=== PATIENT | male | born 1955 | race Caucasian/White ===

== ENCOUNTER 2022-03-13 08:26 | Inpatient (IN) | payer MEDICARE ==
[2022-03-10 11:38] LABS: CLARITY,URINE CLEAR (Clear); COLOR,URINE YELLOW (Yellow); GLUCOSE, URINE >=1000 mg/dl (Neg); KETONES,URINE TRACE mg/dl (Neg); LEUKOCYTE ESTERASE ,URINE NEGATIVE (Neg); NITRITES, URINE NEGATIVE (Neg); OCCULT BLOOD,URINE NEGATIVE (Neg); PROTEIN,URINE NEGATIVE (Neg); UROBILINOGEN,URINE 0.2 E.U/dL (0.2-1.0)
[2022-03-10 11:40] LABS: BASOPHILS % (AUTO) 0.5 % (0-1); EOSINOPHILS # (AUTO) 0.2 X10'3 (0-0.9); EOSINOPHILS % (AUTO) 2.6 % (0-6); LYMPHOCYTES # (AUTO) 2.1 X10'3 (1.1-4.8); LYMPHOCYTES % (AUTO) 26.1 % (21-51); MEAN CORPUSCULAR HEMOGLOBIN 29.7 PG (27.0-31.0); MEAN CORPUSCULAR HGB CONC 33.2 g/dL (33.0-36.5); MEAN CORPUSCULAR VOLUME 89.5 FL (78-98); MEAN PLATELET VOLUME 8.3 FL (7.4-10.4); MONOCYTES # (AUTO) 0.6 X10'3 (0-0.9); NEUTROPHILS % (AUTO) 62.8 % (42-75); PRE OP HEMATOCRIT 44.4 % (42.0-52.0); PRE OP HEMOGLOBIN 14.7 g/dL (14.0-17.9); PRE OP PLATELET COUNT 215 X10'3 (140-440); RED BLOOD COUNT 4.96 X10'6 (4.70-6.10); RED CELL DISTRIBUTION WIDTH 13.4 % (11.5-14.5)
[2022-03-10 11:43] LABS: UA COLLECTION TYPE CLN CATCH MIDSTREAM
[2022-03-10 11:44] LABS: BACTERIA,URINE NONE SEEN /HPF (Neg); RBC,URINE 0-2 /HPF (0-2); SQUAMOUS EPITHELIAL CELL,UR FEW /LPF (FEW); WBC,URINE NONE SEEN /HPF (0-4)
[2022-03-10 12:22] LABS: HEMOGLOBIN A1C 7.3 % (4.5-6.2)
[2022-03-10 12:39] LABS: PRE OP PROTIME 10.8 SECONDS (9.0-12.0)
[2022-03-10 12:47] LABS: ALKALINE PHOSPHATASE 54 IU/L (46-116); BLOOD UREA NITROGEN 22 MG/DL (7-18); BUN/CREATININE RATIO 24.2 (5.4-32.0); CALCIUM 9.5 MG/DL (8.5-10.1); CHLORIDE 106 MMOL/L (99-107); CREATININE 0.91 MG/DL (0.60-1.10); PRE OP ALT 39 U/L (30-65); PRE OP ANION GAP 13 (8-16); PRE OP AST 19 U/L (10-37); PRE OP GLUCOSE 135 MG/DL (70-104); PRE OP POTASSIUM 4.1 MMOL/L (3.4-5.1); PRE OP SODIUM 144 MMOL/L (135-145); TOTAL CARBON DIOXIDE 25.1 MMOL/L (24-32); TOTAL PROTEIN 8.2 G/DL (6.4-8.2); eGFR 83 ML/MIN
[~2022-03-13] VITALS: Ht 185.4 cm; Wt 108.3 kg
[2022-03-13] VITALS (18 sets, daily range): BP systolic 103–179; BP diastolic 57–85
[~2022-03-13 08:26] MED LIST: ATOR40TA71 PO; aspirin 325mg tablet PO ONE; cefazolin/dext.iso 2gm/50ml IV ONE; famotidine 20mg tablet PO ONE; ondansetron/PF 4mg/2ml inj IV PRN; ringers solution, lacted 1,000 ML IV SCH; vancomycin/NS 1 GM in NS 250 ML IV ONE
[2022-03-13] MEDS ORDERED: phenylephrine inj 50 MG in normal saline 250ml IV soln 245 ML IV SCH (08:35)
[2022-03-13] MEDS ORDERED: nitroPRUSSIDE (NIPRIDE) (200MCG/ML) 100ML Drip IV SCH (08:35)
[2022-03-13] MEDS ORDERED: protamine sulf. 10mg/ml inj. IV ONE ×2 (09:32→13:06)
[2022-03-13] MEDS ORDERED: ringers solution, lacted 1,000 ML IV SCH (10:35)
[2022-03-13] MEDS ORDERED: ondansetron/PF 4mg/2ml inj IV PRN ×2 (10:35→14:15)
[2022-03-13] MEDS ORDERED: morphine 4 MG/ML inj SYRINge IV PRN (10:35)
[2022-03-13] MEDS ORDERED: labetalol 20mg/4ml (5mg/ml) syringe IV PRN ×2 (10:35→14:15)
[2022-03-13] MEDS ORDERED: fentaNYL/PF 50MCG/1 ML 2ML syringe IV PRN ×2 (10:35)
[2022-03-13] MEDS ORDERED: hydrALAZINE 20mg/ml inj. IV PRN (10:35)
[2022-03-13] MEDS ORDERED: morphine 2 MG/ML inj. syringe IV PRN (10:35)
[2022-03-13] MEDS ORDERED: METF-438 PO (11:46)
[2022-03-13] MEDS ORDERED: heparin 1,000 UNITS/NS 500ml 0 ML ONE (12:14)
[2022-03-13] MEDS ORDERED: LIDOcaine 1% (10mg/ml)w/preservative inj. 20ml MDV ONE (12:14)
[2022-03-13] MEDS ORDERED: iohexol 350 MG/ML 50ML vial IV ONE ×2 (12:14→12:15)
[2022-03-13] MEDS ORDERED: iohexol 350MG/ML 100ml bottle IV ONE ×2 (12:14→12:15)
[2022-03-13] MEDS ORDERED: LIDOCAINE 1% w/preservative (10 MG/ML) inj. 10mL VIAL ONE ×2 (12:15→12:28)
[2022-03-13] MEDS ORDERED: heparin 1,000 UNITS/NS 500ml 1,500 ML ONE (12:15)
[2022-03-13] MEDS ORDERED: fentaNYL/PF 50MCG/1 ML 2ML syringe ONE (12:28)
[2022-03-13] MEDS ORDERED: MIDAZolam 1 MG/ML 5ML VIAL ONE (12:29)
[2022-03-13] MEDS ORDERED: heparin 1,000unit/ml 10ml vial 10 ML ONE ×2 (12:59→13:41)
[2022-03-13] MEDS ORDERED: ALPRAZolam 0.25mg tablet PO PRN (14:15)
[2022-03-13] MEDS ORDERED: pantoprazole 40mg Tablet.DR PO PRN (14:15)
[2022-03-13] MEDS ORDERED: diphenhydrAMINE 25mg capsule PO PRN (14:15)
[2022-03-13] MEDS ORDERED: acetaminophen 325mg tablet PO PRN (14:15)
[2022-03-13] MEDS ORDERED: proCHLORperazine 10 MG/2 ml inj IV PRN (14:15)
[2022-03-13] MEDS ORDERED: docusate sod 100mg capsule PO PRN (14:15)
--- NOTE | 2022-03-13 14:25 | NUR ---
Received from OR via , accompanied by Anesthesiologist and report given by Anesthesiolgist. PATIENT WAKING UP, DENIES PAIN, V/S STABLE WITH B/P DRIPS TITRATED SEE EMAR, NEUROVASCULAR CHECKS INTACT, GROIN SITE BILATERALLY SHOW NO S/S OF COMPLICATION CDI SCANT EDEMA TO SITE. SINUS . ART LINE TO HUMBERTO SELLERS RUZakia 20G. BLEACH PACKER PAGED.
--- NOTE | 2022-03-13 14:49 | NUR ---
SOME MILD ST ELEVATION SUSPECTED ON ARRIVAL TO PACU, EKG DONE AND REVIEWED W/ DR CANSECO WHICH ENDED UP NOT BEING ST ELEVATION WITH 12 LEAD AND PATIENT IS ASYMPTOMATIC.
--- NOTE | 2022-03-13 15:25 | NUR ---
. PATIENT FLAT SUPINE, A&OX4, DENIES PAIN, V/S STABLE, NEUROVASCULAR CHECKS INTACT, GROIN SITE BILATERALLY SHOW NO S/S OF COMPLICATION CDI SCANT EDEMA TO SITE. SINUS . ART LINE TO HUMBERTO D/C, PIV RUE 20G. PATIENT TAKEN TO PCU AND HOOKED UP TO MONITORS IN ROOM AND REPORT GIVEN TO MAINSPRING STRIP INSPECTOR WHO HAS TAKEN OVER PATIENT CARE.
[2022-03-13] MEDS: normal saline 1000ml 1,000 ML IV SCH (15:33)
[2022-03-13] MEDS: ceFAZolin 1GM/D5W- ADD-VANTAGE 50 ML IV SCH (17:23)
[2022-03-13] MEDS: sod chloride 0.9% 10ml flush syringe IV SCH (17:25)
--- NOTE | 2022-03-13 18:00 | NUR ---
Patient in room PCU 3025. I have received report from AISHA GIL and had the opportunity to ask questions and assume patient care.
--- NOTE | 2022-03-13 18:00 | NUR ---
Patient in room PCU 3025. I have received report from ROD GIL and had the opportunity to ask questions and assume patient care.
--- NOTE | 2022-03-13 18:38 | NUR ---
Problems reprioritized. Patient report given, questions answered & plan of care reviewed with Patience GIL.
[2022-03-13] MEDS: vancomycin/NS 1 GM ADD-VANTAGE 250 ML IV SCH (21:06)
[2022-03-13] MEDS: hydrALAZINE 20mg/ml inj. IV PRN (21:07)
[2022-03-14] MEDS: sod chloride 0.9% 10ml flush syringe IV SCH ×2 (00:06→09:00)
[2022-03-14] MEDS: ceFAZolin 1GM/D5W- ADD-VANTAGE 50 ML IV SCH ×2 (00:06→09:00)
[2022-03-14] MEDS: normal saline 1000ml 1,000 ML IV SCH (00:15)
[2022-03-14] MEDS: hydrALAZINE 20mg/ml inj. IV PRN (00:57)
--- NOTE | 2022-03-14 02:20 | NUR ---
DISCUSSED BLOOD PRESSURE ISSUES WITH PATIENT, EDUCATED PATIENT REGARDING USAGE OF MEDICATIONS IN HOSPITAL AND OUTPATIENT HOME MANAGEMENT, ENCOURAGING PATIENT TO FOLLOW UP WITH CARDIOLOGY REGARDING USE OF HOME BLOOD PRESSURE MACHINE SUGGESTED BY CARDIOLOGY WELL ANY MEDICATIONS PRESCRIBED AT TIME OF DISCHARGE. WILL PASS THIS ON TO DAY SHIFT RN FOR FOLLOW UP. FREDDIE GIL
[2022-03-14 06:06] VITALS: BP 138/71
--- NOTE | 2022-03-14 06:50 | NUR ---
Problems reprioritized. Patient report given, questions answered & plan of care reviewed with GORDY GIL.
[2022-03-14 06:56] VITALS: BP 133/67
[2022-03-14 08:02] LABS: BASOPHILS % (AUTO) 0.3 % (0-1); EOSINOPHILS # (AUTO) 0.1 X10'3 (0-0.9); EOSINOPHILS % (AUTO) 1.1 % (0-6); HEMATOCRIT 41.6 % (42.0-52.0); LYMPHOCYTES # (AUTO) 1.3 X10'3 (1.1-4.8); LYMPHOCYTES % (AUTO) 14.7 % (21-51); MEAN CORPUSCULAR HEMOGLOBIN 30.2 PG (27.0-31.0); MEAN CORPUSCULAR HGB CONC 33.6 g/dL (33.0-36.5); MEAN PLATELET VOLUME 8.6 FL (7.4-10.4); MONOCYTES # (AUTO) 0.8 X10'3 (0-0.9); MONOCYTES % (AUTO) 8.6 % (2-12); NEUTROPHILS # (AUTO) 6.7 X10'3 (1.8-7.7); NEUTROPHILS % (AUTO) 75.3 % (42-75); PLATELET COUNT 173 X10'3 (140-440); RED BLOOD COUNT 4.62 X10'6 (4.70-6.10); RED CELL DISTRIBUTION WIDTH 13.5 % (11.5-14.5); WHITE BLOOD COUNT 8.9 X10'3 (4.5-11.0)
[2022-03-14] MEDS ORDERED: aspirin 81mg tab.chew PO SCH (08:30)
[2022-03-14 08:54] LABS: ALANINE AMINOTRANSFERASE 42 U/L (12-78); ALBUMIN 3.5 G/DL (3.4-5.0); ALBUMIN/GLOBULIN RATIO 0.9 (1.1-1.5); ALKALINE PHOSPHATASE 47 IU/L (46-116); ANION GAP 12 (8-16); ASPARTATE AMINO TRANSFERASE 27 U/L (10-37); BLOOD UREA NITROGEN 14 MG/DL (7-18); BUN/CREATININE RATIO 17.1 (5.4-32.0); CALCIUM 8.7 MG/DL (8.5-10.1); CHLORIDE 106 MMOL/L (99-107); CREATININE 0.82 MG/DL (0.60-1.10); GLUCOSE 215 MG/DL (70-104); MAGNESIUM 1.8 MG/DL (1.5-2.4); POTASSIUM 3.7 MMOL/L (3.5-5.1); SODIUM 141 MMOL/L (135-145); TOTAL CARBON DIOXIDE 23.4 MMOL/L (24-32); TOTAL PROTEIN 7.2 G/DL (6.4-8.2); eGFR > 90 ML/MIN
[2022-03-14] MEDS: vancomycin/NS 1 GM ADD-VANTAGE 250 ML IV SCH (09:00)
[2022-03-14] MEDS ORDERED: ASPI81TA53 PO (10:17)
--- NOTE | 2022-03-14 10:48 | NUR ---
Noted pt with T2DM, well controlled with A1c 7.3%. Pt recently admitted and seen at bedside 02/19 for written and verbal DM education. RD contact information provided at that time. No further education planned at this time. Noted pt pending discharge. Will remain available. Addendum: 03/14/22 at [address] Amended: Links added.
--- NOTE | 2022-03-14 10:59 | NUR ---
Pt amb 2 times around hallway loop
[2022-03-14 11:28] VITALS: BP 134/75
== END 2022-03-14 13:49 | disposition home or self-care (01) | DRG 266 ==
LOC: PAS IN 08:26 → PCU 3S 15:26
PROVIDERS: ADMIT Internal Medicine Cardiovascular Disease; ATTEND Internal Medicine Cardiovascular Disease
PROC: 027F3ZZ Dilation of Aortic Valve, Percutaneous Approach (ICD-10-PCS; 2022-03-13)
PROC: B41D1ZZ Fluoroscopy of Aorta and Bilateral Lower Extremity Arteries using Low Osmolar Contrast (ICD-10-PCS; 2022-03-13)
PROC: X2RF332 Replacement of Aortic Valve using Zooplastic Tissue, Rapid Deployment Technique, Percutaneous Approach, New Technology Group 2 (ICD-10-PCS; principal; 2022-03-13 12:28)
DX: I35.0 Nonrheumatic aortic (valve) stenosis (principal); I50.33 Acute on chronic diastolic (congestive) heart failure; Z53.1 Procedure and treatment not carried out because of patient's decision for reasons of belief and group pressure; Z00.6 Encounter for examination for normal comparison and control in clinical research program
CPT/HCPCS: 33361; 36415; 71045; 76937; 80053; 81001; 82948; 83036; 83735; 83880; 85025; 85347; 85610; 85730; 87081; 93005; 93308; A4618; A6258; A6449; C1760; C1769; C1894; G0378; J0360; J0690; J1644; J2250; J2270; J2720; J3010; J3370; J3490; J7030; J7040; J7120; Q9967; U0003; U0005

== ENCOUNTER 2022-04-11 05:23 | Inpatient (IN) | payer MEDICARE ==
[2022-04-09 17:09] LABS: BASOPHILS % (AUTO) 0.4 % (0-1); EOSINOPHILS # (AUTO) 0.3 X10'3 (0-0.9); EOSINOPHILS % (AUTO) 4.7 % (0-6); LYMPHOCYTES # (AUTO) 1.8 X10'3 (1.1-4.8); MEAN CORPUSCULAR HEMOGLOBIN 29.5 PG (27.0-31.0); MEAN CORPUSCULAR HGB CONC 32.9 g/dL (33.0-36.5); MEAN CORPUSCULAR VOLUME 89.5 FL (78-98); MEAN PLATELET VOLUME 8.1 FL (7.4-10.4); MONOCYTES # (AUTO) 0.6 X10'3 (0-0.9); MONOCYTES % (AUTO) 9.8 % (2-12); NEUTROPHILS # (AUTO) 3.8 X10'3 (1.8-7.7); NEUTROPHILS % (AUTO) 58.1 % (42-75); PRE OP HEMOGLOBIN 14.2 g/dL (14.0-17.9); PRE OP PLATELET COUNT 165 X10'3 (140-440); RED BLOOD COUNT 4.81 X10'6 (4.70-6.10); RED CELL DISTRIBUTION WIDTH 13.6 % (11.5-14.5)
[2022-04-09 17:20] LABS: PRE OP PROTIME 10.4 SECONDS (9.0-12.0)
[2022-04-09 17:21] LABS: ALBUMIN 4.1 G/DL (3.4-5.0); ALKALINE PHOSPHATASE 56 IU/L (46-116); BLOOD UREA NITROGEN 24 MG/DL (7-18); CALCIUM 9.4 MG/DL (8.5-10.1); CHLORIDE 104 MMOL/L (99-107); CREATININE 0.96 MG/DL (0.60-1.10); PRE OP ALT 24 U/L (30-65); PRE OP ANION GAP 13 (8-16); PRE OP AST 10 U/L (10-37); PRE OP BILIRUB, TOTAL 0.8 MG/DL (0.0-1.0); PRE OP GLUCOSE 126 MG/DL (70-104); PRE OP SODIUM 141 MMOL/L (135-145); TOTAL PROTEIN 8.2 G/DL (6.4-8.2); eGFR 78 ML/MIN
[2022-04-10] MEDS: phenylephrine inj 50 MG in normal saline 250ml IV solN IV SCH (14:00)
[~2022-04-11] VITALS: Ht 185.4 cm; Wt 110.7 kg
[2022-04-11] VITALS (23 sets, daily range): BP systolic 109–177; BP diastolic 49–83
[~2022-04-11 05:23] MED LIST changes: +ASPI-1053 PO; +EMPA10TA PO; +LOSA25TA96 PO; -aspirin 325mg tablet PO ONE; -cefazolin/dext.iso 2gm/50ml IV ONE; -famotidine 20mg tablet PO ONE; -ondansetron/PF 4mg/2ml inj IV PRN; -ringers solution, lacted 1,000 ML IV SCH; -vancomycin/NS 1 GM in NS 250 ML IV ONE
[2022-04-11] MEDS ORDERED: famotidine 20mg tablet PO ONE (05:30)
[2022-04-11] MEDS ORDERED: metoprolol tartrate 12.5mg (1/2 tablet) PO ONE (05:30)
[2022-04-11] MEDS: nitroPRUSSIDE 0.2mg/mL in NS 100 ML IV SCH ×2 (05:30→11:47)
[2022-04-11] MEDS: phenylephrine inj 50 MG in normal saline 250ml IV solN IV SCH ×2 (05:59→21:58)
[2022-04-11] MEDS ORDERED: LIDOcaine 1% (10mg/ml) 2ml vial ONE ×2 (06:44→06:47)
[2022-04-11] MEDS ORDERED: heparin 10,000 units/1 ML INJ ONE (06:44)
[2022-04-11] MEDS ORDERED: ceFAZolin 1000mg inj ONE (07:14)
[2022-04-11] MEDS ORDERED: fentaNYL/PF 50MCG/1 ML 2ML syringe ONE (07:22)
[2022-04-11] MEDS ORDERED: meperidine/PF 25mg/ml syringe IV PRN ×2 (07:30)
[2022-04-11] MEDS ORDERED: labetalol 20mg/4ml (5mg/ml) syringe IV PRN (07:30)
[2022-04-11] MEDS ORDERED: hydrALAZINE 20mg/ml inj. IV PRN (07:30)
[2022-04-11] MEDS ORDERED: acetaminophen 1,000mg/100ml IV 100 ML IV PRN (07:30)
[2022-04-11] MEDS ORDERED: ondansetron/PF 4mg/2ml inj IV PRN ×2 (07:30→09:20)
[2022-04-11] MEDS ORDERED: proCHLORperazine 10 MG/2 ml inj IV PRN (07:30)
[2022-04-11] MEDS ORDERED: morphine 2 MG/ML inj. syringe IV PRN (07:30)
[2022-04-11] MEDS ORDERED: ringers solution, lacted 1,000 ML IV SCH (07:30)
[2022-04-11] MEDS ORDERED: midazolam 1 mg/ML 2ml injection ONE (08:13)
[2022-04-11] MEDS ORDERED: 0.9 % SODIUM CHLORIDE 10 ML VIAL ONE (08:31)
[2022-04-11] MEDS ORDERED: rocuronium 10mg/ml inj IV ONE (08:31)
[2022-04-11] MEDS ORDERED: ePHEDrine 50MG/ML INJ. ONE (08:31)
[2022-04-11] MEDS ORDERED: dexamethasone sod phosphate 4mg/ml inj. ONE (08:31)
[2022-04-11] MEDS ORDERED: propofol inj 20 ML IV ONE (08:31)
[2022-04-11] MEDS ORDERED: ondansetron/PF 4mg/2ml inj ONE (08:31)
[2022-04-11] MEDS ORDERED: LIDOcaine 2% (20mg/ml) 5ml vial ONE (08:31)
[2022-04-11] MEDS ORDERED: heparin 10,000 units/1 ML INJ IR ONE (08:42)
[2022-04-11] MEDS ORDERED: sugammadex 200mg/2ml injection IV ONE (09:08)
[2022-04-11] MEDS ORDERED: metoclopramide 5 mg/ml inj IV PRN (09:20)
[2022-04-11] MEDS ORDERED: HYDROcodone/acetaminophen 10/325mg tab PO PRN ×2 (09:20)
[2022-04-11] MEDS ORDERED: magnesium hydroxide 30ml (MOM) UD suspension PO PRN (09:20)
[2022-04-11] MEDS ORDERED: HYDROcodone/acetaminophen 5mg/325mg tablet PO PRN (09:25)
[2022-04-11] MEDS ORDERED: niCARdipine I.V. 50 MG in normal saline 250ml IV soln 230 ML IV SCH (09:25)
--- NOTE | 2022-04-11 09:26 | NUR ---
PATIENT IS DROWSY, ORIENTED X4, PUPIL +2 PERRLA BILATERALLY. NO TRACHEA DEVIATION, HEMATOMA, BLEEDING IN LEFT NECK INCISION. NORMAL MUSCLE STRENGTH ON BOTH UPPER AND LOWER EXTREMITIES. PULSES ARE PALPABLE ON BILATERAL RADIAL AND DORSALIS PEDIS. Addendum: 04/11/22 at 1052 by Pedro Luis Stockton RN Amended: Links added.
[2022-04-11] MEDS ORDERED: DEXTROSE 15 GM of carb/4 tabs (each vial/BOTTLE has 4 tablets) PO PRN ×2 (09:30)
[2022-04-11] MEDS ORDERED: glucagon, human recombinant 1mg kit SUBCUT PRN (09:30)
[2022-04-11] MEDS ORDERED: MESSAGE TO PHARMACY PO ONE (09:30)
[2022-04-11] MEDS ORDERED: dextrose 50%-water 50ml dispensing syringe IV PRN ×2 (09:30)
[2022-04-11] MEDS ORDERED: insulin Lispro (HumaLOG) vial - multi-dose SQ SCH (09:30)
[2022-04-11] MEDS: morphine 4 MG/ML inj SYRINge IV PRN ×2 (09:54→10:18)
[2022-04-11] MEDS ORDERED: HYDROmorphone/PF 0.2 MG/ML SYRINGE IV PRN ×2 (10:15)
[2022-04-11] MEDS ORDERED: fentaNYL/PF 50MCG/1 ML 2ML syringe IV PRN ×2 (10:15)
[2022-04-11] MEDS: meperidine/PF 25mg/ml syringe IV PRN ×2 (10:26→10:33)
--- NOTE | 2022-04-11 16:30 | NUR ---
Patient in room CICU 2016. I have received report from LOUISE LAZARO, and had the opportunity to ask questions and assume patient care.
[2022-04-11] MEDS: ceFAZolin inj. 1,000 MG in dextrose 5%-water 50ml 50 ML IV SCH (17:55)
--- NOTE | 2022-04-11 18:37 | NUR ---
Problems reprioritized. Patient report given, questions answered & plan of care reviewed with LOUISE HUBER.
[2022-04-11] MEDS: niCARDipine-NS 40mg/200ml IVPB 200 ML IV SCH ×2 (19:05→19:16)
[2022-04-11] MEDS: gabapentin 300mg capsule PO SCH (20:43)
[2022-04-11] MEDS: docusate sod 100mg capsule PO SCH (20:43)
[2022-04-11] MEDS ORDERED: insulin glargine (Lantus) pen - multi-dose SQ SCH (21:00)
[2022-04-11] MEDS: niCARdipine I.V. 50 MG in normal saline 250ml IV soln 230 ML IV SCH (22:05)
[2022-04-12] VITALS (11 sets, daily range): BP systolic 132–167; BP diastolic 49–70
[2022-04-12] MEDS: ceFAZolin inj. 1,000 MG in dextrose 5%-water 50ml 50 ML IV SCH ×2
[2022-04-12] MEDS: niCARdipine I.V. 50 MG in normal saline 250ml IV soln 230 ML IV SCH (02:59)
[2022-04-12 03:06] LABS: BASOPHILS % (AUTO) 0.1 % (0-1); EOSINOPHILS % (AUTO) 0 % (0-6); HEMATOCRIT 41.7 % (42.0-52.0); HEMOGLOBIN 13.5 g/dl (14.0-17.9); LYMPHOCYTES # (AUTO) 1.2 X10'3 (1.1-4.8); MEAN CORPUSCULAR HEMOGLOBIN 29.4 PG (27.0-31.0); MEAN CORPUSCULAR HGB CONC 32.5 g/dL (33.0-36.5); MEAN CORPUSCULAR VOLUME 90.7 FL (78-98); MEAN PLATELET VOLUME 8.2 FL (7.4-10.4); MONOCYTES # (AUTO) 0.7 X10'3 (0-0.9); NEUTROPHILS # (AUTO) 9.8 X10'3 (1.8-7.7); NEUTROPHILS % (AUTO) 83.9 % (42-75); PLATELET COUNT 160 X10'3 (140-440); RED CELL DISTRIBUTION WIDTH 13.5 % (11.5-14.5); WHITE BLOOD COUNT 11.7 X10'3 (4.5-11.0)
[2022-04-12 03:17] LABS: ALBUMIN 3.7 G/DL (3.4-5.0); ANION GAP 14 (8-16); BLOOD UREA NITROGEN 20 MG/DL (7-18); CALCIUM 9.3 MG/DL (8.5-10.1); CHLORIDE 102 MMOL/L (99-107); CREATININE 0.87 MG/DL (0.60-1.10); GLUCOSE 183 MG/DL (70-104); POTASSIUM 4.2 MMOL/L (3.5-5.1); SODIUM 137 MMOL/L (135-145); TOTAL CARBON DIOXIDE 21.4 MMOL/L (24-32); eGFR 87 ML/MIN
[2022-04-12] MEDS: nitroPRUSSIDE 0.2mg/mL in NS 100 ML IV SCH (07:10)
[2022-04-12] MEDS: docusate sod 100mg capsule PO SCH (08:00)
[2022-04-12] MEDS ORDERED: atorvastatin 20mg tablet PO SCH (08:00)
[2022-04-12] MEDS: gabapentin 300mg capsule PO SCH (08:00)
[2022-04-12] MEDS ORDERED: losartan 25mg tablet PO SCH (08:00)
[2022-04-12] MEDS ORDERED: aspirin 81mg tab.chew PO SCH (08:00)
[2022-04-12] MEDS ORDERED: niCARDipine-NS 40mg/200ml IVPB 200 ML IV SCH (09:28)
[2022-04-12] MEDS ORDERED: metoprolol tartrate 1mg/ml inj IV ONE (09:55)
[2022-04-12] MEDS ORDERED: clopidogrel 75mg tablet PO SCH (11:45)
[2022-04-12] MEDS ORDERED: CLOP75TA15 PO (11:46)
--- NOTE | 2022-04-12 12:40 | NUR ---
dc'd his Rt Radial art line, canula is intact, hemostasis achieved pt in good spirits, Rt PIV dc'd canila intact
--- NOTE | 2022-04-12 13:15 | NUR ---
Pt readied for discharge, instructions given, prescription sent to [facility] in [place], pt tx to car katie laughlin assisted into car.
--- NOTE | 2022-04-14 09:29 | NUR ---
Case Management DC follow up: Spoke with Patient via telephone. s/p:Patient Reports:Denies:Acute changes in vision, difficulty speaking, numbness or weakness in upper, or lower extremities. Denies headache,drooping eye lid, drooping on either side of face or mouth ;denies, numbness in face and hands.Verbalizes dressing at inc site clean ,no signs of drainage. Reiterated the need to check incision daily for signs and symptoms of infection: warm to touch,drainage redness,bad smell, or pus.Verbalizes compliance with aftercare.Verbalizes understanding of signs/symptoms that warrant 911/ER visit to further evaluation.Verbalizes understanding of new Rx: why prescribed;continues/resumes current Rx as ordered.Verbalizes he has appointment on with Dr. Parry, at [facility].Appointment with have been scheduled.Verbalizes the Dr's were the best of the best, and the staff did a nice job.
== END 2022-04-12 13:52 | disposition home or self-care (01) | DRG 39 ==
LOC: PAS IN 05:23 → CICU 2S 11:20
PROVIDERS: ADMIT Thoracic Surgery (Cardiothoracic Vascular Surgery); ATTEND Thoracic Surgery (Cardiothoracic Vascular Surgery)
PROC: 03UJ0KZ Supplement Left Common Carotid Artery with Nonautologous Tissue Substitute, Open Approach (ICD-10-PCS; 2022-04-11)
PROC: 03CJ0ZZ Extirpation of Matter from Left Common Carotid Artery, Open Approach (ICD-10-PCS; principal; 2022-04-11 08:01)
DX: I65.22 Occlusion and stenosis of left carotid artery (principal); E11.9 Type 2 diabetes mellitus without complications; E78.5 Hyperlipidemia, unspecified
CPT/HCPCS: 36415; 80048; 80053; 82948; 85025; 85610; 85730; 87081; A4618; A6250; A6258; A6402; A7000; C1768; G0378; J0131; J0690; J1100; J1170; J1644; J1815; J2175; J2250; J2270; J2405; J2704; J3010; J3490; J7050; J7060; J7120